=== PATIENT | male | born 1950 | race Native Hawaiian/Other Pacific Islander ===

== ENCOUNTER 2021-04-13 20:18 | Emergency (ER) | payer OTHER ==
[~2021-04-13] VITALS: Ht 165.1 cm; Wt 77.1 kg
[2021-04-13 20:38] LABS: PLATELET COUNT 361 K/uL (142-355)
[2021-04-13 20:48] LABS: POTASSIUM 3.8 mmol/L (3.6-5.2)
[2021-04-13 21:40] VITALS: BP 137/72; TEMP 97.9
[2021-04-14] MEDS ORDERED: AMLODIPINE BESYLATE PO (08:36)
[2021-04-14] MEDS ORDERED: DONEPEZIL HYDROC5 MG PO (08:37)
[2021-04-14] MEDS ORDERED: FUROSEMIDE40 MG PO (08:38)
[2021-04-14] MEDS ORDERED: QUETIAPINE50 MG PO (08:40)
[2021-04-14] MEDS ORDERED: QUETIAPINE100 MG PO (08:40)
[2021-04-14] MEDS ORDERED: TRAZODONE HYDR100 MG PO (08:41)
[2021-04-14] MEDS ORDERED: DIVALPROEX250 M1 PO (08:43)
[2021-04-14] MEDS ORDERED: HALO5INJ3 IM (08:44)
== END 2021-04-13 21:40 | disposition still patient (30) ==
LOC: ED 20:18
PROVIDERS: Emergency Medicine
DX: F03.91 Unspecified dementia, unspecified severity, with behavioral disturbance (principal); Z11.52 Encounter for screening for COVID-19; Z04.6 Encounter for general psychiatric examination, requested by authority
CPT/HCPCS: 36415; 80053; 81000; 85027; 87635; 93005; 99283; U0003